=== PATIENT | female | born 1980 | race Caucasian/White ===

== ENCOUNTER 2021-07-24 14:58 | Emergency (ER) | payer OTHER ==
[~2021-07-24] VITALS: Ht 154.9 cm; Wt 61.2 kg
--- NOTE | 2021-07-24 15:05 | NUR ---
PT WHEELCHAIR TO BED 7 AT THIS TIME
[2021-07-24 15:14] VITALS: BP 130/69
[2021-07-24] MEDS ORDERED: HYDROcodone/APAP 5/325 MG 1 TAB TAB PO ONE (15:15)
--- NOTE | 2021-07-24 15:26 | NUR ---
X-Ray at bedside.
--- NOTE | 2021-07-24 15:46 | NUR ---
41 Y/O F BIB SELF FROM HOME, PATIENT PRESENTS TO ED WITH C/O R ANKLE PAIN POST MECHANICAL FALL 1 WK AGO. DENIES HEAD INJURY, DENIES LOC. PT STATES SHE TAKES IBUPROFEN WITH NO RELIEF. DENIES N/V, DENIES FEVER/CHILLS. PT IS ABLE TO FLEX AND EXTEND R FOOT WITH LIMITED ROM. AMBULATES WITH ASSIST. SKIN IS PINK/WARM/DRY; AAOX4. LUNGS CLEAR BL; HR EVEN AND REGULAR; PT DENIES ANY FEVER, CP, SOB, OR COUGH AT THIS TIME; PATIENT STATES PAIN OF 10/10 AT THIS TIME; VSS; PATIENT POSITIONED FOR COMFORT; HOB ELEVATED; BEDRAILS UP X2; BED DOWN. ER MD MADE AWARE OF PT STATUS. PMH: DENIES MED: IBPROFEN ALLERGIES: SULFA
[2021-07-24] MEDS ORDERED: ACET-10509 PO (16:42)
[2021-07-24 17:01] VITALS: BP 130/69
--- NOTE | 2021-07-24 17:02 | NUR ---
Patient discharged with v/s stable. Written and verbal after care instructions given and explained. Patient alert, oriented and verbalized understanding of instructions. Ambulatory with SPOUSE WITH CRUCTHES to car. All questions addressed prior to discharge. ID band removed. Patient advised to follow up with PMD. Rx of ACETMINOPHEN (SENT) given. Patient educated on indication of medication including possible reaction and side effects. Opportunity to ask questions provided and answered.
== END 2021-07-24 17:02 | disposition home or self-care (01) ==
LOC: MED 14:58
DX: M25.571 Pain in right ankle and joints of right foot (principal); D64.9 Anemia, unspecified; Z98.890 Other specified postprocedural states; Z90.49 Acquired absence of other specified parts of digestive tract; Z88.2 Allergy status to sulfonamides
CPT/HCPCS: 73610; 99283; Q0092

== ENCOUNTER 2022-01-01 17:36 | Emergency (ER) | payer OTHER ==
[~2022-01-01] VITALS: Ht 157.5 cm; Wt 58.5 kg
[~2022-01-01 17:36] MED LIST: ACET-10509 PO
[2022-01-01 17:41] VITALS: BP 121/71
--- NOTE | 2022-01-01 17:51 | NUR ---
CONTACTED POISON CONTROL, SPOKE WITH SADIA ABOUT INGESTION OF BACLOFEN, SUGGESTED ORDERING TYLENOL AND SALICYLATE LEVELS ALONG WITH CHEMISTRY. PT DENIES TAKING ANYTHING ELSE, DENIES SI. Addendum: 01/01/22 at 1804 by [email or web address] CASE #[id number]
--- NOTE | 2022-01-01 18:00 | NUR ---
41 y/o female, pt states she has chronic neck and back pain, states she took 5 po of the 10mg baclofen. Patient A&Ox4, ambulatory, states taking (2) Baclofen between 2002-6228, and the remaining 3 at 1200 today. Patietn c/o dizzy, nausea and light headed since 1500 today. Denies chest pain, abdominal pain, vomiting, fever, chills, dysuria. Bed locked in lowest position, side rails x 1. pmh: anemia allergy: sulfa, walnut, peanuts, corn med: baclofen 10mg took 5 po, Zyrtec Addendum: 01/01/22 at 1824 by SHIRLEY 41 y/o female, pt states she has chronic neck and back pain, states she took 5 po of the 10mg baclofen. Patient A&Ox4, ambulatory, states taking (2) Baclofen between 3101-0938 yesterday, and the remaining 3 at 1200 yesterday. Patient c/o dizzy, nausea and light headed since 1300 yesterday. Denies chest pain, abdominal pain, vomiting, fever, chills, dysuria. Bed locked in lowest position, side rails x 1. pmh: anemia allergy: sulfa, walnut, peanuts, corn med: baclofen 10mg took 5 po, Zyrtec
--- NOTE | 2022-01-01 18:10 | NUR ---
Lab at bedside
[2022-01-01 18:27] LABS: BASOPHILS # (AUTO) 0.1 K/uL (0.00-0.22); BASOPHILS % (AUTO) 0.9 % (0.0-2.0); EOSINOPHILS # (AUTO) 0.2 K/uL (0-0.4); EOSINOPHILS % (AUTO) 2.7 % (0.0-4.0); HEMOGLOBIN 9.8 g/dL (12.0-16.0); LYMPHOCYTES # (AUTO) 2.5 K/uL (2.5-16.5); LYMPHOCYTES % (AUTO) 28.4 % (20.5-51.1); MEAN CORPUSCULAR HEMOGLOBIN 23 pg (27-31); MEAN CORPUSCULAR HGB CONC 32 g/dL (33-37); MEAN CORPUSCULAR VOLUME 72.3 fL (80-94); MONOCYTES # (AUTO) 0.7 K/uL (0.8-1.0); MONOCYTES % (AUTO) 7.4 % (1.7-9.3); NEUTROPHILS # (AUTO) 5.3 K/uL (1.8-7.7); NEUTROPHILS % (AUTO) 60.6 % (42.2-75.2); PLATELET COUNT (AUTO) 553 K/uL (140-450); RED BLOOD CELL COUNT(AUTO) 4.29 MIL/uL (4.20-5.40); RED CELL DISTRIBUTION WIDTH 16.3 % (11.6-13.7); WHITE BLOOD COUNT (AUTO) 8.8 K/uL (4.8-10.8)
[2022-01-01 18:49] LABS: ALBUMIN 3.6 g/dL (3.4-5.0); ASPARTATE AMINOTRANSFERASE 10 U/L (15-37); CARBON DIOXIDE 24.5 mmol/L (21-32); CHLORIDE 101 mmol/L (98-107); CREATININE 0.5 mg/dL (0.6-1.3); GFR ARICAN-AMERICAN 175 mL/min (>90); GLUCOSE 85 mg/dL (74-106); LIPASE 40 U/L (73-393); POTASSIUM 3.5 mmol/L (3.5-5.1); SALICYLATE < 2.8 mg/dL (2.8-20.0); SODIUM SERUM 137 mmol/L (136-145); TOTAL BILIRUBIN 0.2 mg/dL (0.0-1.0); UREA NITROGEN, BLOOD 13 mg/dL (7-18)
[2022-01-01 18:50] LABS: ACETAMINOPHEN < 0.5 ug/ml (10-30)
[2022-01-01] MEDS ORDERED: ONDANSETRON 4 MG ODT PO ONE (19:00)
--- NOTE | 2022-01-01 19:18 | NUR ---
Report and transfer of care given LEIDY Francis.
--- NOTE | 2022-01-01 19:45 | NUR ---
Pt resting in bed without acute distress. Breathing easy and unlabored. Pt states she's been feeling tired and dizzy since yesterday and continues to have symptoms. Pt also notes having nausea and agrees to take zofran odt. Med administered without event.
[2022-01-01] MEDS ORDERED: ONDA-188 PO (20:16)
[2022-01-01 20:35] VITALS: BP 126/61
--- NOTE | 2022-01-01 20:36 | NUR ---
Patient discharged with v/s stable. Written and verbal after care instructions given and explained. Patient alert, oriented and verbalized understanding of instructions. Ambulatory with steady gait. All questions addressed prior to discharge. ID band removed. Patient advised to follow up with PMD. Rx of zofran ODT given. Patient educated on indication of medication including possible reaction and side effects. Opportunity to ask questions provided and answered.
== END 2022-01-01 20:36 | disposition home or self-care (01) ==
LOC: MED 17:36
DX: R11.0 Nausea (principal); R42 Dizziness and giddiness; R10.9 Unspecified abdominal pain; G89.29 Other chronic pain; M54.9 Dorsalgia, unspecified; M54.2 Cervicalgia; D64.9 Anemia, unspecified; Z79.899 Other long term (current) drug therapy
CPT/HCPCS: 36415; 80053; 83690; 85025; 99283; G0480; G0482; Q0162